=== PATIENT | female | born 1960 | race Caucasian/White ===

== ENCOUNTER 2016-12-28 16:12 | Outpatient (CLI) | payer OTHER | END 2016-12-28 16:13 | LOC: LABRHC 16:12 | PROVIDERS: ATTEND Physician Assistant | DX: R30.0 Dysuria (principal) | CPT/HCPCS: 87086 ==

== ENCOUNTER 2017-04-13 14:43 | Outpatient (CLI) | payer OTHER ==
--- NOTE | 2017-04-18 11:42 | OP Clinic Progress Note ---
REASON FOR VISIT: This 56-year-old lady is seen with a history of chronic and recurrent rhinosinusitis associated with headaches, cephalgia, pressure and discomfort overlying both the maxillary sinuses and the retro-orbital areas consistent with an ethmoid-type sinusitis. She blows a variety of different colors of clinically infected material out of her nostrils. She has had a long history of taking antibiotics that is quite extensive including Cleocin, Levaquin, Cipro currently, and multiple other antibiotics. She gets improved for a period of time but tends to rapidly relapse. She gets aching of bones, fevers, chills, and airway blockage. She does not smoke. She had markedly edematous nasal tissue with inflammatory changes, particularly overlying the middle turbinates and ethmoid areas by rhinoscopy. There is no gross polyposis. PLAN: Clinically, the patient has had severe, chronic, and recurrent rhinosinusitis. I have gone over choices and options including no treatment, seeing an economic historian , and ongoing medicines. In that regard, she has also taken steroid nasal sprays, antihistamines, saline nasal sprays, and years of antibiotics. I described sinonasal surgery and the pros, cons, and risks associated with that and also the option of seeing an economic historian instead of having surgery is very carefully gone over as an option. The patient has opted to take the second course of the Cipro currently to see if she can get improved enough. She will get a CT scan and I will see her next week. We will discuss and go over choices and options where surgery could or could not be done, seeing an economic historian, and all the other options possible to her. I believe she is well enough informed to ask clear questions. I believe she understands things in regards to rhinosinusitis issues very well. cc: Dr. Yara BENITEZ
== END 2017-04-13 14:44 ==
LOC: ENT 14:43
PROVIDERS: ATTEND Otolaryngology
DX: J32.8 Other chronic sinusitis (principal); R51 Headache; G50.1 Atypical facial pain
CPT/HCPCS: 31231; 99203

== ENCOUNTER 2017-04-15 08:28 | Outpatient (CLI) | payer OTHER ==
--- NOTE | 2017-04-15 14:06 | Diagnostic Imaging Report ---
RICHI GOMEZ [facility] [address] [facility] [address] [address] Report Submission Date: Apr 15, 2017 9:05:06 AM CDT Patient Study Name: CASSIDY FAN Date: Apr 15, 2017 8:35:37 AM CDT Modality Type: CT\SR Gender: F Description: CT MAXILLOFACIAL W/O D : 60 Institution: [facility] Physician: IRCHI GOMEZ CT sinuses History: CT SINUSES, CHRONIC SINUSITIS FOR ABOUT 2 YEARS Multiple axial images of the sinuses are submitted with reconstructions Findings: No comparison studies The frontal sinuses, ethmoid sinuses and the sphenoid sinuses are well aerated. Right maxillary sinus is within normal limits. There is mild mucosal thickening with polypoid retention cyst in the dependent portion of the left maxillary sinus. The nasal bones, zygomae, mandible are intact. Artifact is caused by the dental hardware. Subcentimeter cervical lymph nodes are present Impression: 1. Mild mucosal thickening and polypoid mucus retention cyst measuring 1.6 cm transverse x 0.8 cm craniocaudad along dependent portion of left maxillary sinus. Electronically signed on Apr 15, 2017 9:05:06 AM CDT by: Isha BENITEZ
== END 2017-04-15 08:30 ==
LOC: RAD 08:28
PROVIDERS: ATTEND Otolaryngology
DX: J32.9 Chronic sinusitis, unspecified (principal)
CPT/HCPCS: 70486

== ENCOUNTER 2017-04-20 10:34 | Outpatient (CLI) | payer OTHER ==
--- NOTE | 2017-04-20 14:22 | OP Clinic Progress Note ---
REASON FOR VISIT: Elizabeth is seen in follow up for evaluation for what she considers to be rhinosinusitis. She has complained bitterly of headaches, postnasal drainage, pressure, and discomfort in the mid-portion of her face, tiredness and fatigue when these symptoms come on. They have been over numerous years. She has taken numerous courses of a variety of antibiotics. She has taken decongestants and antihistamines and some nasal sprays. She does not smoke. She feels like she has a difficult time working when these symptoms come on. Her CT does have a cystic change in the inferior aspect of the left maxillary sinus. I have reviewed her CT of the sinuses with her. She has looked at the images along with me. She does have hypertrophic inferior turbinate tissue. The septum is fairly straight. PLAN: I went ahead and carefully went over her options which categorically include doing nothing, seeing an skate maker, continuing to take a variety of different medications including decongestants, antihistamines, and antibiotics, pretty much as she has done in the past, and having some type of environmental change, although she lives in a fairly healthy respiratory environment, and surgery. I discussed the pros and cons and relative indications of that and also included the surgical risks, all while viewing her CT scan. She states that she feels fairly well informed. Again, no treatment is a guaranteed cure, nor improvement, and all have some degree of risks. Nothing, medications, and surgery all have potential deleterious effects. Been fairly cautious regarding any type of improvement. Although the CT of the sinuses are not particularly bad in the area of the ethmoids and clinically, that is exactly where she has some pain and discomfort and she does have a significant amount of hyperemic changes there on rhinoscopy. Together, we have decided to have Elizabeth wait to see how she feels and give some consideration to things. I encouraged her that she is more than welcome and encouraged to have additional laryngology opinions as I pointed out that there certainly would be some. cc: Dr. Yara BENITEZ
== END 2017-04-20 10:35 ==
LOC: ENT 10:34
PROVIDERS: ATTEND Otolaryngology
DX: J32.8 Other chronic sinusitis (principal)
CPT/HCPCS: 99213

== ENCOUNTER 2018-09-21 11:38 | Outpatient (CLI) | payer BC ==
[2018-09-21 12:20] LABS: eGFR (Non-African) > 60
== END 2018-09-21 11:45 ==
LOC: LAB 11:38
PROVIDERS: ATTEND Family Medicine
DX: N23 Unspecified renal colic (principal)
CPT/HCPCS: 36415; 80053

== ENCOUNTER 2018-09-21 15:26 | Outpatient (CLI) | payer BC | END 2018-09-21 15:40 | LOC: LAB 15:26 | PROVIDERS: ATTEND Family Medicine | DX: N39.0 Urinary tract infection, site not specified (principal) | CPT/HCPCS: 87086 ==